=== PATIENT | male | born 1990 | race Caucasian/White ===

== ENCOUNTER 2017-01-22 23:29 | Emergency (ER) | payer MEDICARE, MEDICAID ==
[~2017-01-22] VITALS: Ht 172.7 cm; Wt 99.0 kg
[2017-01-22 23:35] VITALS: BP 147/83; PULSE 76; RESP 20; O2SAT 98
--- NOTE | 2017-01-23 00:11 | ED.REPORT ---
HPI-Chest Pain Under 40 Date of Service Jan 23, 2017 ED Provider: Matthew King MD Patient is a 26 year old male who presents to the ED complaining of palpitations onset today s/p consuming a cup of coffee, 6 Halima teas, 2 energy drinks, and 3 sodas with his most recent consumption at 2340. Associated symptoms include mild, dull chest pain. He denies headache, nausea, vomiting, or any other symptoms. He reports a rapid pulse just prior to arrival. Nursing Notes Stated Complaint: RAPID HEART Chief Complaint: Chest Pain-Non Cardiac Nature Nursing Notes Reviewed: Yes Allergies: Uncoded Allergies: ABLIFY (Allergy, Unknown, 01/22/17) SITERRA (Allergy, Unknown, 01/22/17) General Time Seen by MD: 00:11 Chief Complaint Other (Palpitations ) Hx Obtained From: Patient Arrived By: Walk-in Sudden in Onset?: Yes Onset Occurred: 1 - 4 hours ago Past Medical History Past Medical History ADD Unspecified psychiatric hx Past Surgical History None reported Smoking History Current Every Day Smoker Social History Other Social History: Good social support Ambulatory Status Independent Review of Systems Cardiovascular: Reports: Chest pain, Palpitations GI: Denies: Nausea, Vomiting Neurologic: Denies: Headache Complete sys rev & neg: except as marked. Physical Exam Initial Vital Signs Vital Signs (First) Date Time Temp Pulse Resp B/P Pulse Ox O2 Delivery O2 Flow Rate FiO2 01/22/17 23:35 36.6 76 20 147/83 98 Room Air Initial VS: Reviewed Head / Eyes: Atraumatic, Normocephalic Neck: Full range of motion Abdomen / GI: Soft, Non-tender Skin: Warm, Dry Neurologic: Alert, Oriented, Nonfocal Psychiatric: Mood/affect normal, Behavior normal, Normal thought content General/Constitutional: Awake, Alert, No acute distress, Well developed Respiratory / Chest: Breath sounds NL, Breath sounds = bilat, No respiratory distress Cardiovascular: Heart rate NL, Regular rhythm, Heart sounds NL Interpretation & Diagnostics Lab Results Interpretation Result Diagram: 01/23/17 0005 01/23/17 0005 Test 01/23/17 00:05 White Blood Count 10.8th/mm3 (3.8-10.1) Red Blood Count 5.32mil/mm3 (4.40-5.80) Hemoglobin 15.8g/dL (13.8-17.2) Hematocrit 46.7% (41.0-50.0) Mean Corpuscular Volume 87.8fL (81-100) Mean Corpuscular Hemoglobin 29.7pg (27.0-35.0) Mean Corpuscular Hemoglobin Concent 33.8% (32.0-37.0) Red Cell Distribution Width 13.4% (12.3-15.4) Platelet Count 252bil/L (150-400) Neutrophils (%) (Auto) 51.6% (40-74) Lymphocytes (%) (Auto) 37.3% (14-46) Monocytes (%) (Auto) 6.9% (4-12) Eosinophils (%) (Auto) 3.4% (0-5) Basophils (%) (Auto) 0.2% (0-3) Sodium Level 138mEq/L (134-144) Potassium Level 3.9mEq/L (3.5-5.2) Chloride Level 100mEq/L (97-108) Carbon Dioxide Level 20mmol/L (18-29) Blood Urea Nitrogen 11mg/dL (6-20) Creatinine 0.89mg/dL (0.76-1.27) Estimat Glomerular Filtration Rate 111mL/min (>59) Glucose Level 139mg/dL (60-99) Calcium Level 8.9mg/dL (8.5-10.1) Magnesium Level 1.8mg/dL (1.6-2.6) Total Bilirubin 0.2mg/dL (0.0-1.2) Direct Bilirubin 0.2mg/dL (0.0-0.3) Aspartate Amino Transf (AST/SGOT) 31U/L (0-50) Alanine Aminotransferase (ALT/SGPT) 51U/L (0-44) Alkaline Phosphatase 62U/L (25-150) Troponin T 0.010ug/L (0.0-0.011) Total Protein 7.0g/dL (6.4-8.4) Albumin 4.2g/dL (3.4-5.0) Thyroid Stimulating Hormone (TSH) 1.780uIU/mL (0.450-4.500) Free Thyroxine 1.12ng/dL (0.82-1.77) Hold Betancur Top Tube Received (Received) ECG Interpretation ECG Interpretation: sinus rate 76 no abnL Time: 00:25 Interpreted by: ED physician Re-Eval/Medical Decision Med Decision/Clinical Course 26-year-old with an ADD history presents after ingesting multiple caffeinated drinks, with palpitations. No abnormal rhythms observed during this period of time he was here. Blood pressure and other vitals are stable. EKG and lab are unremarkable. Advised to discontinue excessive use of caffeine. Re-Evaluation/Progress : Time of Eval: 01:32 Re-Evaluation/Progress Note: Discussed plan for discharge. Patient understands and agrees with plan. All questions addressed at this time. Counseled Regarding: Diagnosis, Lab results, Need for follow-up, When/why to return to ED Discharge & Departure Primary Impression: Heart palpitations Additional Impressions: Caffeine abuse Caffeine adverse reaction Encounter type: initial encounter Qualified Code: T43.615A - Adverse effect of caffeine, initial encounter Disposition: Home Discharge Condition All VS Reviewed: Yes Condition: Improved Additional Instructions: Do not drink more than two energy drinks in a given day. Do not drink them closely spaced. Do not take other sources of caffeine beyond that. Follow-up with your doctor in the office. Return if you have sustained rapid heart beats , so that we can record them. Referrals: Jade Young MD (PCP) Scribe Attestation Portions of this note were transcribed by Matthew Miguel. I, Dr. King personally performed the history, physical exam and medical decision-making; I reviewed and confirmed the accuracy of the information in the transcribed note. Signed by: Matthew Miguel 01/23/2017, 0133 copies to: Jade Yuong MD, Christopher W MD Jan 23, 2017 00:11 MATTHEW MIGUEL Jan 23, 2017 00:19
[2017-01-23 00:41] LABS: BASOPHILS % (AUTO) 0.2 % (0-3); EOSINOPHILS % (AUTO) 3.4 % (0-5); MONOCYTES % (AUTO) 6.9 % (4-12); Mean Corpuscular Hemoglobin 29.7 pg (27.0-35.0); Mean Corpuscular Volume 87.8 fL (81-100); NEUTROPHILS % (AUTO) 51.6 % (40-74); Platelet Count 252 bil/L (150-400)
[2017-01-23] MEDS ORDERED: Ondansetron 8 mg ODT Tablet ONE (00:47)
[2017-01-23 00:49] LABS: TROPONIN T 0.01 ug/L (0.0-0.011)
[2017-01-23 01:24] LABS: Bilirubin, Direct 0.2 mg/dL (0.0-0.3); Magnesium 1.8 mg/dL (1.6-2.6)
[2017-01-23 01:37] VITALS: BP 130/70; PULSE 74; RESP 20; O2SAT 97
== END 2017-01-23 01:37 | disposition home or self-care (01) ==
LOC: SED 23:29
DX: R00.2 Palpitations (principal); F15.20 Other stimulant dependence, uncomplicated; T43.615A Adverse effect of caffeine, initial encounter; X58.XXXA Exposure to other specified factors, initial encounter; Y93.89 Activity, other specified; Y92.9 Unspecified place or not applicable; Y99.8 Other external cause status; F17.200 Nicotine dependence, unspecified, uncomplicated; Z88.8 Allergy status to other drugs, medicaments and biological substances